=== PATIENT | male | born 1990 | race Caucasian/White ===

== ENCOUNTER 2022-07-26 16:03 | Emergency (ER) | payer MEDICAID ==
[~2022-07-26] VITALS: Ht 162.6 cm; Wt 82.6 kg
[2022-07-26 16:13] VITALS: BP 130/68
[2022-07-26] MEDS ORDERED: BACI1PAC6 TP (16:44)
[2022-07-26] MEDS ORDERED: IBUP-426 PO (16:44)
[2022-07-26] MEDS ORDERED: LIDOCAINE MPF 1% 10 MG/ML VIAL INJ ONE (16:50)
[2022-07-26] MEDS ORDERED: BACITRACIN OINT 500 UNITS/GM PKT TP ONE (16:50)
--- NOTE | 2022-07-26 17:44 | NUR ---
PT AMBULATED TO ER BED 6
--- NOTE | 2022-07-26 18:35 | NUR ---
r toe x 1 non adherent + cms
--- NOTE | 2022-07-26 18:39 | NUR ---
Patient discharged with v/s stable. Written and verbal after care instructions ABOUT INGROWN TOENAIL given and explained. Patient alert, oriented and verbalized understanding of instructions. Ambulatory with steady gait. All questions addressed prior to discharge. ID band removed. Patient advised to follow up with PMD. Rx of BACITRACIN OINT AND IBUPROFEN given. Patient educated on indication of medication including possible reaction and side effects. Opportunity to ask questions provided and answered.
== END 2022-07-26 18:39 | disposition home or self-care (01) ==
LOC: MED 16:03
DX: L60.0 Ingrowing nail (principal); Z79.899 Other long term (current) drug therapy
CPT/HCPCS: 11730; 99284; J2001

== ENCOUNTER 2022-07-28 15:40 | Emergency (ER) | payer MEDICAID ==
[~2022-07-28] VITALS: Ht 165.1 cm; Wt 86.6 kg
[~2022-07-28 15:40] MED LIST: BACI1PAC6 TP; IBUP-426 PO
[2022-07-28 15:47] VITALS: BP 145/75
--- NOTE | 2022-07-28 15:58 | NUR ---
31/M PRESENTS TO ED WITH C/O RIGHT BIG TOE PAIN X3 DAYS, STATES HE WAS SEEN HERE 07/26 FOR INGROWN TOENAIL BUT REPORTS NO RELIEF. REPORTS USING RX OF MOTRIN AND BACITRACIN WITH NO RELIEF, SWELLING AND TENDERNESS NOTED TO TOE, PATIENT DENIES FEVERS OR CHILLS.
--- NOTE | 2022-07-28 16:00 | NUR ---
PT AMBULATED TO ER BED 4
[2022-07-28] MEDS ORDERED: HYDROcodone/APAP 5/325 MG 1 TAB TAB PO ONE (16:10)
[2022-07-28] MEDS ORDERED: BACITRACIN OINT 500 UNITS/GM PKT TP ONE (16:10)
[2022-07-28] MEDS ORDERED: ACET-10509 PO (16:24)
[2022-07-28] MEDS ORDERED: CEPH-588 PO (16:24)
--- NOTE | 2022-07-28 17:00 | NUR ---
Patient discharged with v/s stable. Written and verbal after care instructions given and explained. Patient alert, oriented and verbalized understanding of instructions. Ambulatory with steady gait. All questions addressed prior to discharge. ID band removed. Patient advised to follow up with PMD. Rx of KELFEX, TYLENOL EXTRA STRENGTH given. Patient educated on indication of medication including possible reaction and side effects. Opportunity to ask questions provided and answered.
== END 2022-07-28 17:00 | disposition home or self-care (01) ==
LOC: MED 15:40
DX: L60.0 Ingrowing nail (principal); Z79.899 Other long term (current) drug therapy
CPT/HCPCS: 99283